=== PATIENT | female | born 1965 | race Caucasian/White ===

== ENCOUNTER 2022-04-17 11:36 | Emergency (ER) | payer OTHER ==
[2022-04-17 12:28] VITALS: BP 151/85; PULSE 88
== END 2022-04-17 14:00 | disposition home or self-care (01) ==
LOC: JP.ED 11:36
DX: R20.2 Paresthesia of skin (principal); G56.01 Carpal tunnel syndrome, right upper limb; E66.9 Obesity, unspecified; Z87.891 Personal history of nicotine dependence; Z68.43 Body mass index [BMI] 50.0-59.9, adult
CPT/HCPCS: 99283